=== PATIENT | male | born 1960 | race Caucasian/White ===

== ENCOUNTER → 2021-06-21 | Outpatient (CLI) | payer BC ==
--- NOTE | 2021-06-21 18:36 | REP ---
INDICATION: SMOKER. COMPARISON: None. TECHNIQUE: Dose reduction was performed utilizing CARE dose with automated adjustment of the kV and MAS according to patient size; iterative reconstruction, automated exposure control, as well as adaptive dose shielding. Helical scanning is acquired and 3 millimeter axial images are re-formatted at lung windows. FINDINGS: Preliminary digital featherer radiograph is unremarkable. There is mild linear fibrosis in the right middle lobe at the right lung base. No infiltrate is seen. There is no evidence of pleural effusion. There is a triangular shaped 5 mm nodule in the left lower lobe. This is visualized on page 56 of 123 in series 201 of today's study. It does not appear to be calcified. No other pulmonary nodule is appreciated. There are lymph node calcifications in the pre tracheal region. Calcifications are seen in the node residuals in the subcarinal and right hilar region. There are granulomatous calcifications in the spleen. Study is otherwise unremarkable. IMPRESSION: Lung RADS category [address] study recommended in 1 year. <Electronically signed by Ran Kenney > 06/21/21 8090
== END ==
LOC: M RAD 18:01
PROVIDERS: ATTEND Family Medicine
DX: F17.200 Nicotine dependence, unspecified, uncomplicated (principal); R91.1 Solitary pulmonary nodule

== ENCOUNTER → 2023-01-23 | Outpatient (CLI) | payer BC | LOC: M RAD 15:58 | PROVIDERS: ATTEND Registered Nurse | DX: F17.218 Nicotine dependence, cigarettes, with other nicotine-induced disorders (principal) ==